=== PATIENT | male | born 1955 | race Caucasian/White ===

== ENCOUNTER 2017-04-08 04:52 | Emergency (ER) | payer SELFPAY ==
[~2017-04-08] VITALS: Ht 160 cm; Wt 64.0 kg
[2017-04-08] MEDS ORDERED: LIDOCAINE HCL 1% 20ML VIAL (Pyxis) INJ MC ONE (09:15)
[2017-04-08] MEDS ORDERED: BACITRACIN ZINC OINT UDPKT TOP ONE (09:15)
[2017-04-08] MEDS ORDERED: TETANUS, DIPHTHERIA, PERTUSSIS VAC/PF 0.5ML (>7YR OLD) IM ONE (09:15)
[2017-04-08] MEDS ORDERED: ACETAMINOPHEN 325MG TABLET PO ONE (09:15)
[2017-04-08] MEDS ORDERED: ACETAMINOPHEN 500MG TABLET PO NR (09:45)
[2017-04-08 11:04] VITALS: BP 105/73
== END 2017-04-08 11:38 | disposition home or self-care (01) ==
LOC: ER 04:52
DX: S61.012A Laceration without foreign body of left thumb without damage to nail, initial encounter (principal); W25.XXXA Contact with sharp glass, initial encounter; Y93.89 Activity, other specified; Y92.89 Other specified places as the place of occurrence of the external cause; Z23 Encounter for immunization
CPT/HCPCS: 12002; 90471; 90715; 99283; J3490; X7700; Z7610

== ENCOUNTER 2017-04-14 04:51 | Emergency (ER) | payer SELFPAY ==
[~2017-04-14] VITALS: Ht 162.6 cm; Wt 61.0 kg
[2017-04-14 06:57] VITALS: BP 110/55
== END 2017-04-14 07:57 | disposition home or self-care (01) ==
LOC: ER 07:47
DX: Z48.02 Encounter for removal of sutures (principal)
CPT/HCPCS: 99283; Z7610